=== PATIENT | female | born 1985 | race Two or more races ===

== ENCOUNTER 2022-02-17 17:15 | Emergency (ER) | payer SELFPAY ==
[~2022-02-17] VITALS: Ht 162.6 cm; Wt 57.7 kg
[2022-02-17 17:40] VITALS: BP 108/70
== END 2022-02-17 23:40 | disposition left against medical advice (07) ==
LOC: ER 17:15 → EDBD 17:15 → ER 19:25
DX: R51.9 Headache, unspecified (principal); F41.9 Anxiety disorder, unspecified; Z53.21 Procedure and treatment not carried out due to patient leaving prior to being seen by health care provider